=== PATIENT | male | born 1970 | race Caucasian/White ===

== ENCOUNTER 2018-03-11 07:35 | Emergency (ER) | payer MEDICAID, OTHER ==
[2018-03-11] MEDS: CIPROFLOXACIN 500 MG TAB PO (08:04)
[2018-03-11] MEDS: DOXYCYCLINE 100 MG TAB PO (08:04)
[2018-03-11] MEDS: DIPHTH/TET/ACEL PERTUSS (ADULT) 0.5 ML VIAL IM* (08:05)
== END 2018-03-11 08:40 | disposition home or self-care (01) ==
LOC: E/R 07:35
DX: S91.311A Laceration without foreign body, right foot, initial encounter (principal); F10.920 Alcohol use, unspecified with intoxication, uncomplicated; W25.XXXA Contact with sharp glass, initial encounter; Y92.9 Unspecified place or not applicable; Z23 Encounter for immunization
CPT/HCPCS: 12001; 73630; 90471; 90715; 99283-25